=== PATIENT | female | born 1975 | race Caucasian/White ===

== ENCOUNTER 2021-01-10 13:56 | Emergency (ER) | payer MEDICAID ==
[~2021-01-10] VITALS: Ht 162.6 cm; Wt 77.1 kg
[2021-01-10 15:14] VITALS: BP 109/87
[2021-01-10] MEDS ORDERED: IBUP-1955 PO (16:37)
[2021-01-10] MEDS ORDERED: PROM118S5 PO (16:37)
--- NOTE | 2021-01-10 16:45 | NUR ---
Patient discharged to home in stable condition. Written and verbal after care instructions given. Patient verbalizes understanding of instruction. Pt ambulatory with a steady gait
== END 2021-01-10 16:47 | disposition home or self-care (01) ==
LOC: ER 14:10
DX: U07.1 COVID-19 (principal); J12.82 Pneumonia due to coronavirus disease 2019
CPT/HCPCS: 71045-TC